=== PATIENT | female | born 1935 | race Asian ===

== ENCOUNTER → 2016-05-14 | Outpatient (CLI) | payer OTHER | LOC: PCVCCLINIC 14:00 | PROVIDERS: ATTEND Internal Medicine Cardiovascular Disease | DX: E78.5 Hyperlipidemia, unspecified (principal); I47.1 Supraventricular tachycardia; R06.00 Dyspnea, unspecified; R00.2 Palpitations; R07.9 Chest pain, unspecified; I10 Essential (primary) hypertension | CPT/HCPCS: 80061; 93005; G0463 ==

== ENCOUNTER → 2017-01-27 | Outpatient (CLI) | payer OTHER | END | disposition home or self-care (01) | LOC: PCVCCLINIC 14:11 | PROVIDERS: ATTEND Internal Medicine Cardiovascular Disease | DX: I10 Essential (primary) hypertension (principal); M19.90 Unspecified osteoarthritis, unspecified site; I47.1 Supraventricular tachycardia; R00.2 Palpitations; Z90.49 Acquired absence of other specified parts of digestive tract; Z95.5 Presence of coronary angioplasty implant and graft; Z79.82 Long term (current) use of aspirin; Z88.8 Allergy status to other drugs, medicaments and biological substances | CPT/HCPCS: 80061; 93005; G0463 ==

== ENCOUNTER → 2017-02-26 | Outpatient (CLI) | payer OTHER ==
--- NOTE | 2017-02-26 15:33 | PCVCIMAG ---
APPROVED REPORT Study performed: 02/26/2017 11:37:02 EXAM: Comprehensive 2D, Doppler, and color-flow Echocardiogram Patient Location: Echo lab Room #: 2Status: routine BSA: 1.46 HR: 61 bpmBP: 190/72 mmHg Rhythm: NSR Other Information Study Quality: Good Risk Factors: Cardiac Risk Factors: HTN Indications Arrhythmia Palpitations Hypertension/HDD Hx: SVT Hx mild AI,MR,TR 2D Dimensions LVEF(%): 60.41 (>50%) IVSd: 9.61 (7-11mm)LVOT Diam: 17.55 (18-24mm) LVDd: 43.46 mm PWd: 8.31 (7-11mm)Ascending Ao: 30.34 (22-36mm) LVDs: 29.54 (25-40mm) Left Atrium: 33.89 (27-40mm) Aortic Root: 23.76 mm LV Single Plane 4CH: 55.70 % LV Single Plane 2CH: 68.85 %Johnson's LVEF: 62.28 % Biplane EF: 63.9 % Volumes Left Atrial Volume (Systole) Single Plane 4CH: 43.29 mLSingle Plane 2CH: 44.60 mL Biplane LA Volume: 47.00 mLLA ESV Index: 32.50 mL/m2 Aortic Valve AoV Peak Gerber.: 1.42 m/s AO Peak Gr.: 8.01 mmHgLVOT Max P.15 mmHg LVOT Max V: 1.13 m/s SUSIE Vmax: 1.94 cm2 AI Vmax: 4.62 m/s AI [place]: 2.10 m/s2 AI PHT: 638.57 ms Mitral Valve E/A Ratio: 1.1 MV Decel. Time: 145.63 ms MV E Max Gerber.: 1.05 m/s MV A Gerber.: 0.93 m/s IVRT: 93.43 ms TDI E/Lateral E': 17.50E/Medial E': 13.13 Medial E' Gerber.: 0.08 m/s Lateral E' Gerber.: 0.06 m/s Pulmonary Valve PV Peak Gerber.: 0.96 m/sPV Peak Gr.: 3.71 mmHg Pulmonary Vein P Vein S: 0.90 m/sP Vein A: 0.34 m/s P Vein D: 0.49 m/sP Vein A Dur.: 76.1 msec P Vein S/D Ratio: 1.84 Tricuspid Valve TR Peak Gerber.: 2.66 m/s TR Peak Gr.: 28.35 mmHg TV Vmax: 0.80 m/sPA Pressure: 35.00 mmHg Left Ventricle The left ventricle is normal size. There is normal LV segmental wall motion. There is normal left ventricular wall thickness. Left ventricular systolic function is normal. The left ventricular ejection fraction is within the normal range. LVEF is 60-65%. The left ventricular diastolic function is normal. Right Ventricle The right ventricle is normal size. The right ventricular systolic function is normal. Atria The left atrium size is normal. The right atrium size is normal. Aortic Valve The aortic valve is normal in structure. Mild aortic regurgitation. There is no aortic valvular stenosis. Mitral Valve The mitral valve is normal in structure. There is no mitral valve regurgitation noted. No evidence of mitral valve stenosis. Tricuspid Valve The tricuspid valve is normal in structure. Mild tricuspid regurgitation with a PA pressure of 35mmHg.. Pulmonic Valve The pulmonary valve is normal in structure. There is no pulmonic valvular regurgitation. Great Vessels The aortic root is normal in size. The ascending aorta is normal in size. IVC is normal in size and collapses with >50% inspiration Pericardium There is no pericardial effusion. There is no pleural effusion. <Conclusion> The left ventricle is normal size. LVEF is 60-65%. The left ventricular diastolic function is normal. The right ventricle is normal size. The left atrium size is normal. The right atrium size is normal. Mild aortic regurgitation. There is no mitral valve regurgitation noted. Mild tricuspid regurgitation with a PA pressure of 35mmHg.. There is no pericardial effusion.
== END | disposition home or self-care (01) ==
LOC: PCVCIMAG 11:37
PROVIDERS: ATTEND Internal Medicine Cardiovascular Disease
DX: I08.2 Rheumatic disorders of both aortic and tricuspid valves (principal); I10 Essential (primary) hypertension; I47.1 Supraventricular tachycardia; I49.9 Cardiac arrhythmia, unspecified; E78.00 Pure hypercholesterolemia, unspecified; F41.8 Other specified anxiety disorders; M19.90 Unspecified osteoarthritis, unspecified site; Z90.49 Acquired absence of other specified parts of digestive tract; Z79.82 Long term (current) use of aspirin; Z79.899 Other long term (current) drug therapy; Z88.5 Allergy status to narcotic agent
CPT/HCPCS: 93005; 93306; G0463

== ENCOUNTER → 2017-05-01 | Outpatient (CLI) | payer OTHER ==
--- NOTE | 2017-05-01 11:14 | PCVCIMAG ---
EXAM: BILATERAL RENAL ULTRASOUND AND BILATERAL RENAL DUPLEX INDICATION: Hypertension FINDINGS: Right kidney: Length measures 12.0 cm. No hydronephrosis or extensive renal scarring. 4.8 x 5.0 x 6.2 cm solid mass lower pole is indeterminate and could be due to renal cell carcinoma. There is adjacent 1.7 cm cyst. Right renal duplex: Adequate technical quality. No sonographic evidence of renal artery stenosis. The aortic to renal artery ratio is 1.3. The renal vein is patent. Left kidney: Length measures 11.7 cm. No hydronephrosis or extensive renal scarring. Left renal duplex: Adequate technical quality. No sonographic evidence of renal artery stenosis. The aortic to renal artery ratio is 1.5. The renal vein is patent. Bladder: No obvious abnormalities. IMPRESSION: No significant renal artery stenosis. No hydronephrosis bilaterally. 6.2 cm solid mass lower pole right kidney is indeterminate and worrisome for renal cell carcinoma. LOC:[id number]
== END | disposition home or self-care (01) ==
LOC: PCVCIMAG 09:29
PROVIDERS: ATTEND Internal Medicine Cardiovascular Disease
DX: I10 Essential (primary) hypertension (principal); E78.00 Pure hypercholesterolemia, unspecified; N28.1 Cyst of kidney, acquired; R53.83 Other fatigue; Z87.898 Personal history of other specified conditions; Z79.82 Long term (current) use of aspirin; Z79.899 Other long term (current) drug therapy
CPT/HCPCS: 76770; 93005; 93975; G0463

== ENCOUNTER → 2017-08-18 | Outpatient (CLI) | payer OTHER | END | disposition home or self-care (01) | LOC: PCVCCLINIC 15:14 | DX: I10 Essential (primary) hypertension (principal); H81.10 Benign paroxysmal vertigo, unspecified ear; I47.1 Supraventricular tachycardia; N28.89 Other specified disorders of kidney and ureter; F32.9 Major depressive disorder, single episode, unspecified; Z79.82 Long term (current) use of aspirin; Z79.899 Other long term (current) drug therapy | CPT/HCPCS: 80061; 93005; G0463 ==

== ENCOUNTER → 2017-12-28 | Outpatient (CLI) | payer OTHER | END | disposition home or self-care (01) | LOC: PCVCCLINIC 15:54 | PROVIDERS: ATTEND Nuclear Medicine Nuclear Cardiology | DX: D17.71 Benign lipomatous neoplasm of kidney (principal); I10 Essential (primary) hypertension; E78.00 Pure hypercholesterolemia, unspecified; Z79.82 Long term (current) use of aspirin | CPT/HCPCS: G0463 ==

== ENCOUNTER → 2018-10-21 | Outpatient (CLI) | payer OTHER | END | disposition home or self-care (01) | LOC: PCVCCLINIC 12:00 | PROVIDERS: ATTEND Internal Medicine | DX: I10 Essential (primary) hypertension (principal); R00.2 Palpitations; I47.1 Supraventricular tachycardia; R42 Dizziness and giddiness; Z79.82 Long term (current) use of aspirin | CPT/HCPCS: 93005; G0463 ==

== ENCOUNTER → 2018-11-01 | Outpatient (CLI) | payer OTHER ==
--- NOTE | 2018-11-01 14:02 | PCVCIMAG ---
APPROVED REPORT Study performed: 11/01/2018 11:50:50 EXAM: Comprehensive 2D, Doppler, and color-flow Echocardiogram Patient Location: Echo lab Room #: 2Status: routine BSA: 1.50 HR: 62 bpmBP: 134/78 mmHg Rhythm: NSR Other Information Study Quality: Adequate Risk Factors: Cardiac Risk Factors: HTN Indications Palpitations Hypertension/HDD PSVT, Dizziness 2D Dimensions IVSd: 7.03 (7-11mm)LVOT Diam: 18.48 (18-24mm) LVDd: 50.11 mm PWd: 7.08 (7-11mm)Ascending Ao: 29.35 (22-36mm) LVDs: 30.17 (25-40mm) Left Atrium: 30.34 (27-40mm) Aortic Root: 25.38 mm LV Single Plane 4CH: 63.37 % LV Single Plane 2CH: 50.57 % Biplane EF: 57.4 % Volumes Left Atrial Volume (Systole) Single Plane 4CH: 40.15 mLSingle Plane 2CH: 43.69 mL Biplane LA Volume: 44.00 mLLA ESV Index: 29.00 mL/m2 Aortic Valve AoV Peak Gerber.: 1.46 m/s AO Peak Gr.: 9.20 mmHgLVOT Max P.06 mmHg LVOT Max V: 1.09 m/s SUSIE Vmax: 2.00 cm2 AI Vmax: 4.25 m/s AI [place]: 2.02 m/s2 AI PHT: 619.05 ms Mitral Valve E/A Ratio: 1.1 MV Decel. Time: 181.90 ms MV E Max Gerber.: 1.03 m/s MV A Gerber.: 0.91 m/s IVRT: 83.04 ms TDI E/Lateral E': 10.30E/Medial E': 10.30 Medial E' Gerber.: 0.10 m/s Lateral E' Gerber.: 0.10 m/s Pulmonary Valve PV Peak Gerber.: 0.83 m/sPV Peak Gr.: 2.73 mmHg Pulmonary Vein P Vein S: 0.88 m/sP Vein A: 0.30 m/s P Vein D: 0.65 m/sP Vein A Dur.: 92.3 msec P Vein S/D Ratio: 1.35 Tricuspid Valve TR Peak Gerber.: 2.46 m/s TR Peak Gr.: 24.15 mmHg TV Vmax: 1.66 m/sPA Pressure: 34.00 mmHg Left Ventricle The left ventricle is normal size. There is normal LV segmental wall motion. There is normal left ventricular wall thickness. Left ventricular systolic function is normal. The left ventricular ejection fraction is within the normal range. LVEF is 55-60%. The left ventricular diastolic function is normal. Right Ventricle The right ventricle is normal size. The right ventricular systolic function is normal. Atria The left atrium size is normal. The right atrium size is normal. Aortic Valve The aortic valve is normal in structure. Mild aortic regurgitation. There is no aortic valvular stenosis. Mitral Valve The mitral valve is normal in structure. There is no mitral valve regurgitation noted. No evidence of mitral valve stenosis. Tricuspid Valve The tricuspid valve is normal in structure. Trace to mild tricuspid regurgitation with a PA pressure of 34 mmHg. Pulmonic Valve The pulmonary valve is normal in structure. Trace pulmonic regurgitation. Great Vessels The aortic root is normal in size. The ascending aorta is normal in size. Aortic arch is normal in caliber. IVC is normal in size and collapses >50% with inspiration. Pericardium There is no pericardial effusion. There is no pleural effusion. <Conclusion> The left ventricle is normal size. LVEF is 55-60%. The left ventricular diastolic function is normal. The right ventricle is normal size. The left atrium size is normal. Mild aortic regurgitation. There is no mitral valve regurgitation noted. Trace to mild tricuspid regurgitation with a PA pressure of 34 mmHg. The aortic root is normal in size. There is no pericardial effusion.
== END | disposition home or self-care (01) ==
LOC: PCVCIMAG 11:22
PROVIDERS: ATTEND Internal Medicine Cardiovascular Disease
DX: I10 Essential (primary) hypertension (principal); I47.9 Paroxysmal tachycardia, unspecified; E78.5 Hyperlipidemia, unspecified; Z79.82 Long term (current) use of aspirin
CPT/HCPCS: 93306

== ENCOUNTER → 2018-11-29 | Outpatient (CLI) | payer OTHER | END | disposition home or self-care (01) | LOC: PCVCCLINIC 10:00 | PROVIDERS: ATTEND Internal Medicine Cardiovascular Disease | DX: I47.1 Supraventricular tachycardia (principal); E78.00 Pure hypercholesterolemia, unspecified; D17.71 Benign lipomatous neoplasm of kidney; I10 Essential (primary) hypertension; F41.9 Anxiety disorder, unspecified; F32.9 Major depressive disorder, single episode, unspecified; Z79.82 Long term (current) use of aspirin | CPT/HCPCS: 36415; 80061; 93005; G0463 ==